=== PATIENT | male | born 1940 | race Caucasian/White ===

== ENCOUNTER → 2017-08-08 | Outpatient (CLI) | payer MEDICARE, BC ==
[2017-08-08 10:12] LABS: ANION GAP 14 (8-16); BLOOD UREA NITROGEN 16 mg/dl (7-20); CALCIUM 8.7 mg/dl (8.4-10.2); CARBON DIOXIDE 31 mmol/L (21-31); CHLORIDE 104 mmol/L (97-110); GLUCOSE 103 mg/dl (70-220); SODIUM 145 mmol/L (135-144)
[2017-08-08] MEDS: IOHEXOL 100 ML (11:31)
[2017-08-08] MEDS: SOD CHLORIDE 0.9% 100 ML (11:31)
[2017-08-08] MEDS: NITROGLYCERIN AEROSOL (4.9 GM) (11:32)
== END | disposition home or self-care (01) ==
LOC: C/S 09:18
DX: N28.9 Disorder of kidney and ureter, unspecified (principal); R07.9 Chest pain, unspecified
CPT/HCPCS: 75574; 80048

== ENCOUNTER 2017-10-26 06:49 | Day surgery (SDC) | payer MEDICARE, BC ==
[~2017-10-26 06:49] MED LIST: DIAZEPAM 5 MG TAB PO; DIPHENHYDRAMINE 50 MG CAP PO; FAMOTIDINE 20 MG TAB PO; SOD CHLORIDE 0.45% 1,000 ML IV
[2017-10-26 07:47] LABS: ADD MAN DIFF? NO
[2017-10-26 07:51] LABS: BASOPHIL # 0.1 10^3/ul (0.0-0.1); BASOPHILS % 0.7 % (0.0-2.0); EOSINOPHILS # 0.2 10^3/ul (0.0-0.5); HEMATOCRIT 38.6 % (42.0-52.0); HEMOGLOBIN 12.9 g/dl (14.0-18.0); LYMPHOCYTES # 1.5 10^3/ul (0.8-2.9); LYMPHOCYTES % 20.8 % (15.0-51.0); MEAN CORPUSCULAR HEMOGLOBIN 31.8 pg (29.0-33.0); MEAN CORPUSCULAR HGB CONC 33.4 g/dl (32.0-37.0); MEAN CORPUSCULAR VOLUME 95.1 fl (82.0-101.0); MEAN PLATELET VOLUME 10.2 fl (7.4-10.4); MONOCYTE # 0.7 10^3/ul (0.3-0.9); NEUTROPHIL # 4.9 10^3/ul (1.6-7.5); NEUTROPHILS % 67.2 % (39.0-77.0); PLATELET COUNT 204 10^3/UL (140-415); RED BLOOD COUNT 4.06 10^6/ul (4.70-6.10); RED CELL DISTRIBUTION WIDTH 13.2 % (11.5-14.5)
[2017-10-26 07:51] LABS: WHITE BLOOD COUNT 7.3 10^3/ul (4.8-10.8)
[2017-10-26 08:11] LABS: INR 1.02; PROTIME 13.5 Sec (11.9-14.9); PT RATIO 1.1
[2017-10-26 08:12] LABS: PARTIAL THROMBOPLASTIN TIME 30.6 Sec (25.0-35.0)
[2017-10-26 08:19] LABS: ANION GAP 14 (8-16); BLOOD UREA NITROGEN 22 mg/dl (7-20); CALCIUM 9.3 mg/dl (8.4-10.2); CARBON DIOXIDE 27 mmol/L (21-31); CHLORIDE 108 mmol/L (97-110); CHOL/HDL RATIO 2.7 RATIO; CHOLESTEROL 144 mg/dl (100-200); CREATININE 0.82 mg/dl (0.61-1.24); GLUCOSE 98 mg/dl (70-220); HDL CHOLESTEROL 53 mg/dl (31-75); LDL CHOLESTEROL,CALCULATED 79 mg/dl; POTASSIUM 4.4 mmol/L (3.5-5.1); SODIUM 145 mmol/L (135-144); TRIGLYCERIDES 59 mg/dl (0-149)
[2017-10-26] MEDS ORDERED: LIDOCAINE 1% (MDV) 10 ML INJ (08:31)
[2017-10-26] MEDS ORDERED: VERAPAMIL 5 MG INJ ×2 (08:32→09:37)
[2017-10-26] MEDS ORDERED: MIDAZOLAM 1 MG/ML 2 ML INJ (08:32)
[2017-10-26] MEDS ORDERED: FENTAnyl 50 MCG/ML VIAL (08:32)
[2017-10-26] MEDS ORDERED: HEPARIN 1000 UNITS/ML 10 ML INJ (08:32)
[2017-10-26] MEDS ORDERED: NITROGLYCERIN (IC) 100 MCG/ML INJ ×2 (08:32→09:35)
[2017-10-26] MEDS ORDERED: IODIXANOL LOCM 100 ML BTL (08:32)
[2017-10-26] MEDS ORDERED: SOD CHLORIDE 0.9% 1,000 ML IV (10:09)
[2017-10-26] MEDS ORDERED: ACETAMINOPHEN 325 MG TAB PO (10:30)
[2017-10-26] MEDS ORDERED: morphine 2 MG INJ IV (10:30)
[2017-10-26] MEDS ORDERED: ONDANSETRON 4 MG INJ IV (10:30)
[2017-10-26] MEDS ORDERED: AL HYDROX/MG HYDROX/SIMETH 30 ML CUP PO (10:30)
== END 2017-10-26 14:13 | disposition home or self-care (01) ==
LOC: SDS 06:49
DX: I25.10 Atherosclerotic heart disease of native coronary artery without angina pectoris (principal); I10 Essential (primary) hypertension; E78.5 Hyperlipidemia, unspecified; F17.200 Nicotine dependence, unspecified, uncomplicated
CPT/HCPCS: 71045; 80048; 80061; 85025; 85610; 85730; 93005; 93458